=== PATIENT | female | born 1970 | race African-American/Black ===

== ENCOUNTER 2016-09-19 09:26 | Emergency (ER) | payer BC, OTHER ==
[~2016-09-19] VITALS: Ht 175.3 cm; Wt 100.0 kg
[2016-09-19 09:28] VITALS: BP 147/96; PULSE 108; RESP 24; TEMP 98.1; O2SAT 100
[2016-09-19 09:52] VITALS: TEMP 99.2
--- NOTE | 2016-09-19 09:52 | PD ---
HPI Chief Complaint: Cold / Flu Symptoms Time Seen by Provider: 09:52 Travel History International Travel<30 days: No Contact w/Intl Traveler<30days: No Traveled to known affect area: No History of Present Illness HPI 46-year-old female presents to the emergency Department with complaint of cough , nasal congestion, chest tightness, shortness of breath, body aches, headache 4 days. She went to [place] last week and her grandson was sick with similar symptoms. Reports subjective fever and feeling hot and cold chills. Has not taken her temperature and cannot reports MAXIMUM TEMPERATURE. Reports pressure behind both ears. Denies chest pain, abdominal pain, nausea, vomiting. Denies recent trauma, surgery, hospitalization. Denies being on control. Denies leg edema. Denies hemoptysis. Denies history of DVT/PE. Has tried taking TheraFlu with no relief of symptoms. Took Tylenol last night. Allergies to aspirin and codeine. Says she can take ibuprofen. No other modifying factors or associated signs and symptoms. 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 ) Chest Pain: Yes (10/03/15) Musculoskeletal: Yes (costocondrytis ) ?: Not LMP: 08/30/16 Tubal Ligation: Yes (1999) Social History Alcohol Use: No Tobacco Use: No Substance Use: No Allergies-Medications (Allergen,Severity, Reaction): Coded Allergies: Aspirin (Verified Adverse Reaction, Unknown, Bleeding, 09/19/16) Codeine (Verified Adverse Reaction, Unknown, Nausea/Vomiting, 09/19/16) Reported Meds & Prescriptions Reported Meds & Active Scripts Active Deltasone (Prednisone) 20 Mg Tab 40 Mg PO DAILY 4 Days start 09/20/2016 Proair Hfa 8.5 GM Inh (Albuterol Sulfate) 90 Mcg/Act Aer 2 Puff INH Q4-6H PRN 108 mcg/actuation Ibuprofen 800 Mg Tab 800 Mg PO Q6HR PRN Tessalon Perles (Benzonatate) 100 Mg Cap 100 Mg PO TID PRN Nasonex Nasal Robbins (Mometasone Furoate) 50 Mcg/Act Naspr 2 Robbins EACH NARE DAILY PRN Review of Systems Except as stated in HPI: all other systems reviewed are Neg Physical Exam Narrative GENERAL: Well-nourished, well-developed female patient, in no acute distress; low-grade fever 99.2; appears like she doesn't feel well cynical and nontoxic-appearing SKIN: Warm and dry. No rash. HEAD: Atraumatic. Normocephalic. EYES: Pupils equal and round at 3 mm with brisk reaction. No scleral icterus. No injection or drainage. PERRLA. ENT: Mucosa pink and moist. No erythema or exudates. No uvular edema. No uvular , palatal, or tonsillar deviation. Airway patent. EARS: Bilateral pinnae and external canals appear within normal limits. Bilateral tympanic membranes without erythema, dullness or perforation. NECK: Trachea midline. No lymphadenopathy. CARDIOVASCULAR: Regular rate and rhythm. No murmur appreciated. RESPIRATORY: No accessory muscle use. Clear to auscultation and decreased to bilateral bases. Breath sounds equal bilaterally. No retractions or tachypnea. No audible wheezing. GASTROINTESTINAL: Abdomen soft, non-tender, nondistended. Hepatic and splenic margins not palpable. Bowel sounds are active 4 quadrants. MUSCULOSKELETAL: No obvious deformities. No clubbing. No cyanosis. No edema. NEUROLOGICAL: Awake and alert. Oriented 3. No obvious cranial nerve deficits. Motor grossly within normal limits. Normal speech. Moves all extremities. 5/5 strength to all extremities. PSYCHIATRIC: Appropriate mood and affect; insight and judgment normal. Data Data Last Documented VS Vital Signs Date Time Temp Pulse Resp B/P Pulse Ox O2 Delivery O2 Flow Rate FiO2 09/19/16 09:52 99.2 09/19/16 09:28 108 24 147/96 100 Room Air Orders Influenzae A/B Antigen (09/19/16 09:47) Ibuprofen (Motrin) (09/19/16 10:00) Chest, Single Ap (09/19/16 09:52) Prednisone (Deltasone) (09/19/16 10:00) Albuterol Neb (Albuterol Neb) (09/19/16 10:00) MDM Medical Decision Making Medical Screen Exam Complete: Yes Emergency Medical Condition: Yes Medical Record Reviewed: Yes Differential Diagnosis Influenza, bronchitis, pneumonia, less likely PE Narrative Course 46-year-old female with cold/flu symptoms 4 days. Patient has low-grade fever 99.2 in the ER. Looks as if she doesn't feel well. Nontoxic appearing. Reports chest tightness and shortness of breath. I do not suspect PE. Feel her symptoms are related to cold/flu symptoms. No history of asthma. Suspecting bronchitis. The patient denies history of PE or DVT; denies recent surgery or trauma, hemoptysis, exogenous estrogen and leg edema. The patient has no present criteria for pulmonary embolism; using the PERC rule for pulmonary embolism there is no need for further workup for PE. Ibuprofen ordered. Chest x-ray ordered. Influenza ordered. Deltasone and albuterol nebulizer ordered. 1034: Chest x-ray with no acute findings. 1046: Influenza positive. I will treat patient for an influenzal bronchitis also. Patient reports improvement in symptoms after breathing treatment. Lungs are clear and equal throughout with improved breath sounds to bilateral bases. Heart rate recheck 94 bpm. Oxygen saturation 100% on room air. Pro- air inhaler, Tessalon Perles, Nasonex nasal spray, ibuprofen, Deltasone prescribed for home. Tamiflu now prescribed secondary to length of illness. Discussed viral illness and symptomatic management. Patient verbalizes understanding and agreement with treatment plan. Patient is medically cleared and stable for discharge. Discussed reasons to return to the emergency department. Instructed patient to follow up with primary care provider. Patient agrees with treatment plan. The patients vital signs are stable and the patient is stable for outpatient follow-up and treatment. Patient discharged home, stable and in no acute distress. Diagnosis Primary Impression: Influenza B Additional Impression: Influenzal bronchitis Referrals: Primary Care Physician Patient Instructions: Acute Bronchitis (ED), General Instructions, Influenza ( ED), Safe Use of Cough and Cold Medicines (ED) Departure Forms: Tests/Procedures, Work Release Enter return to work date: Sep 22, 2016 Additional Instructions: Use Albuterol inhaler as prescribed Take oral steroids as prescribed and complete full course Use Tessalon Perles as prescribed to decrease coughing spasms [id number] decongestants or antihistamines as directed and as needed for symptom management Your cough can last 4-6 weeks Drink plenty of fluids to prevent dehydration Use hot air humidifier to decrease cough exacerbation Turn off ceiling fans and sleep with head of bed elevated Avoid triggers such as second hand smoke, dust, known allergens Follow-up with your primary care provider Return to the emergency department immediately with worsening of symptoms Med/Other Pt SpecificInfo: Prescription(s) given Scripts Prednisone (Deltasone)20 Mg Tab40 Mg PO DAILY 4 Days Ref 0 start 09/20/2016 Prov:Sharon HardinP 09/19/16 Albuterol 8.5 GM Inh (Proair Hfa 8.5 GM Inh)90 Mcg/Act Aer2 Puff INH Q4-6H PRN ( SOB/WHEEZING) #1 INHALER Ref 0 108 mcg/actuation Prov:Sharon Hardin 09/19/16 Ibuprofen 800 Mg [id number] Mg PO Q6HR PRN (PAIN) #30 TAB Ref 0 Prov:Sharon HardinP 09/19/16 Benzonatate (Tessalon Perles)100 Mg [id number] Mg PO TID PRN (COUGH) #20 CAP Ref 0 Prov:Sharon HardinP 09/19/16 Mometasone Nasal Robbins (Nasonex Nasal Robbins)50 Mcg/Act Naspr2 Robbins EACH NARE DAILY PRN (NASAL CONGESTION) #1 BOTTLE Ref 0 Prov:Sharon HardinP 09/19/16 Disposition: 01 DISCHARGE HOME Condition: Stable Sharon Hardin Sep 19, 2016 09:52
[2016-09-19] MEDS ORDERED: predniSONE 20 MG TAB PO ONE (10:00)
[2016-09-19] MEDS ORDERED: RESP: ALBUTEROL 2.5 MG/3 ML NEB (SCH) INH ONE (10:00)
[2016-09-19] MEDS ORDERED: IBUPROFEN 800 MG TAB PO ONE (10:00)
--- NOTE | 2016-09-19 10:27 | RADRPT ---
EXAM DATE/TIME: 09/19/2016 10:03 [facility] COMPARISON: CHEST SINGLE AP, October 03, 2015, 8:15. INDICATIONS : Cough, congestion and flu symptoms for 4 days MEDICAL HISTORY : None. SURGICAL HISTORY : ENCOUNTER: Initial ACUITY: 4 - 6 days PAIN SCORE: 6/10 LOCATION: Bilateral chest FINDINGS: A single view of the chest demonstrates the lungs to be symmetrically aerated without evidence of mas s, infiltrate or effusion. The cardiomediastinal contours are unremarkable. Osseous structures are intact. CONCLUSION: No acute disease. Austyn Ugarte MD on September 19, 2016 at 10:24 Board Certified Radiologist. This report was verified electronically.
[2016-09-19] MEDS ORDERED: PRED-503 PO (10:36)
[2016-09-19] MEDS ORDERED: ALBUAER3 INH (10:36)
[2016-09-19] MEDS ORDERED: IBUP800T23 PO (10:36)
[2016-09-19] MEDS ORDERED: BENZ100 PO (10:36)
[2016-09-19] MEDS ORDERED: MOME17I EACH NARE (10:36)
[2016-09-19 11:04] VITALS: PULSE 95; O2SAT 100
== END 2016-09-19 11:01 | disposition home or self-care (01) ==
LOC: NEPB 09:26
DX: J10.1 Influenza due to other identified influenza virus with other respiratory manifestations (principal); J20.9 Acute bronchitis, unspecified; R06.02 Shortness of breath
CPT/HCPCS: 71010; 87804; 94664; 99285; J7512; J7613

== ENCOUNTER 2018-05-16 12:24 | Observation (INO) ==
[2018-05-16] MEDS ORDERED: Aspirin 325 MG Tablet PO ONE (12:59)
--- NOTE | 2018-05-16 13:21 | XR ---
EXAM DATE: 05/16/2018 1:08 PM EST AGE/SEX: 48 years / Female INDICATIONS: Chest pain CLINICAL DATA: This is the patient's initial encounter. Patient reports that signs and symptoms have been present for 3 days and indicates a pain score of 7/10. MEDICAL/SURGICAL HISTORY: None. Tubal ligation. COMPARISON: [facility] [place], CHEST 1V SINGLE AP, 04/02/2018. . FINDINGS: A single AP view of the chest demonstrates the lungs to be symmetrically aerated without evidence of mass, infiltrate or effusion. The cardiomediastinal contours are unremarkable. Osseous structures a re intact. CONCLUSION: Negative examination. Electronically signed by: Henrique Hinkle MD 05/16/2018 1:20 PM EST
[2018-05-16 13:59] LABS: Baso % (Auto) 0.7 % (0.0-2.0); Eos # (Auto) 0.1 th/mm3 (0.0-0.4); Eos % (Auto) 1.2 % (0.0-4.0); Hematocrit 29.5 % (35.0-46.0); Hemoglobin 9.2 gm/dL (11.6-15.3); Lymph # (Auto) 2.3 th/mm3 (1.0-4.8); Lymph % (Auto) 37.7 % (9.0-44.0); Mean Corpuscular HGB Conc 31.2 % (32.0-36.0); Mean Corpuscular Hemoglobin 24.5 pg (27.0-34.0); Mean Corpuscular Volume 78.6 fL (80.0-100.0); Mean Platelet Volume 7.9 fL (7.0-11.0); Mono # (Auto) 0.8 th/mm3 (0.0-0.9); Mono % (Auto) 12.6 % (0.0-8.0); Neut # (Auto) 2.9 th/mm3 (1.8-7.7); Neut % (Auto) 47.8 % (16.0-70.0); Platelet Count 307 th/mm3 (150-450); Red Blood Count 3.76 mil/mm3 (4.00-5.30); Red Cell Distribution Width 17.9 % (11.6-17.2)
--- NOTE | 2018-05-16 14:01 | ED ---
HPI General Chief Complaint: Chest Pain Stated Complaint: chest pain Time Seen by Provider: 05/16/18 12:42 Source: patient and family Mode of arrival: ambulatory Limitations: no limitations History of Present Illness HPI narrative: 48-year-old female that presents to the ED for evaluation of chest pain. Patient has had chest pain since today. Per patient he woke her up from her sleep. Per patient states mainly on the chest and feels like something sitting on her chest. She still has some discomfort. She does have a history of high blood pressure but takes no medications for it. She does have a history of GERD as well as chronic pain to her right shoulder from an injury she sustained and had surgery for. She states that she is compliant with his medications. Denies any injury or trauma. No recent travel. Per patient the pressure is 4 out of 10. Has not taken anything for this other than Motrin. Per patient she does have a family history of heart disease. She denies ever having a stress test. She denies smoking. No diabetes. No other medical issues at this time. Pain does not radiate. Related Data Home Medications Medication Instructions Recorded Confirmed meloxicam 15 mg PO DAILY 05/16/18 05/16/18 omeprazole 20 mg PO DAILY 05/16/18 05/16/18 Allergies Allergy/AdvReac Type Severity Reaction Status Date / Time codeine AdvReac Intermediate Nausea/Vomi Verified 05/16/18 13:09 ting Review of Systems ROS: all other systems reviewed are negative [facility] Medical History Medical History Patient denies medical problems (Acute) Surgical History Surgical History Hx of tubal ligation (Acute) Social History Social History Substance History: No History of Abuse Second Hand Smoke Exposure: No Smoking Status: Never smoker How Often Do You Have a Drink Containing Alcohol: Never Recent Travel in [facility] within the Last 8 Weeks: No Recent Out of Country Travel within the Last 8 Weeks: No Immunization History Tetanus Immunization: <5 Years Exam Narrative Exam Narrative: GENERAL: Well appearing SKIN: Focused skin assessment warm/dry. HEAD: Atraumatic. Normocephalic. EYES: Pupils equal and round. No scleral icterus. No injection or drainage. ENT: No nasal bleeding or discharge. Mucous membranes pink and moist. Tongue is midline. No uvula deviation. NECK: Trachea midline. No JVD. CARDIOVASCULAR: Regular rate and rhythm. No murmur appreciated. RESPIRATORY: No accessory muscle use. Clear to auscultation. Breath sounds equal bilaterally. GASTROINTESTINAL: Abdomen soft, non-tender, nondistended. Hepatic and splenic margins not palpable. MUSCULOSKELETAL: No obvious deformities. No clubbing. No cyanosis. No edema. Full range of motion of the upper and lower extremities bilaterally. 2+ pulses bilaterally. NEUROLOGICAL: Awake and alert. No obvious cranial nerve deficits. Motor grossly within normal limits. Normal speech. PSYCHIATRIC: Appropriate mood and affect; insight and judgment normal. Course Initial Documented Vital Signs Temperature 98.8 F 05/16/18 12:32 Pulse Rate 86 05/16/18 12:32 Respiratory Rate 18 05/16/18 12:32 Blood Pressure 163/91 H 05/16/18 12:32 Pulse Oximetry 100 05/16/18 12:32 Last Documented Vital Signs Temperature 97.9 F 05/16/18 14:54 Pulse Rate 87 05/16/18 14:54 Respiratory Rate 18 05/16/18 14:54 Blood Pressure 134/79 05/16/18 14:54 Pulse Oximetry 100 05/16/18 14:54 Medical Decision Making ARTHUR Attestation ARTHUR supervised visit: Yes Attestation: I, Dr. Bell, have reviewed the advance practice practitioner's documentation and am in agreement, met with the patient face to face, made the diagnosis, and the medical decision making was done by me. *My assessment and Findings: Patient is a 48-year-old female presents with complaint of chest pain that has been intermittent. EKG is without acute ischemic changes. Chest x-ray and labs are unremarkable. When she does have the chest pain that has been relieved with nitro if not with rest alone. She has been admitted to the chest pain center for serial troponins and EKGs. MDM Narrative Medical decision making narrative: 48-year-old female that presents to the ED for evaluation of chest pain. Patient was properly examined and was found to have signs and symptoms consistent with chest pain. Patient was given aspirin nitroglycerin here. Labs and imaging showed no sign of acute disease. At this time recommendations admission to the chest pain center. My attending about the patient agrees with this. Patient agrees with this. Medical Screen Exam Complete: Yes Emergency Medical Condition: Yes Differential Diagnosis Differential Diagnosis: Chest pain versus atypical chest pain versus ACS Medical Records Medical records reviewed: Yes I reviewed the patient's medical records. Lab Data Lab results reviewed: Yes I reviewed the patient's lab results. Result diagrams: 05/16/18 13:40 05/16/18 13:40 Lab Results 05/16/18 05/16/18 05/16/18 Range/Units 13:40 13:40 13:40 WBC 6.0 (4.0-11.0) th/mm3 RBC 3.76 L (4.00-5.30) mil/mm3 Hgb 9.2 L (11.6-15.3) gm/dL Hct 29.5 L (35.0-46.0) % MCV 78.6 L (80.0-100.0) fL MCH 24.5 L (27.0-34.0) pg MCHC 31.2 L (32.0-36.0) % RDW 17.9 H (11.6-17.2) % Plt Count 307 (150-450) th/mm3 MPV 7.9 (7.0-11.0) fL Neut % (Auto) 47.8 (16.0-70.0) % Lymph % (Auto) 37.7 (9.0-44.0) % [place] % (Auto) 12.6 H (0.0-8.0) % Eos % (Auto) 1.2 (0.0-4.0) % Baso % (Auto) 0.7 (0.0-2.0) % Neut # (Auto) 2.9 (1.8-7.7) th/mm3 Lymph # (Auto) 2.3 (1.0-4.8) th/mm3 [place] # (Auto) 0.8 (0.0-0.9) th/mm3 Eos # (Auto) 0.1 (0.0-0.4) th/mm3 Baso # (Auto) 0.0 (0.0-0.2) th/mm3 WBC Differential . Differential Comment Auto diff final PT 10.2 (9.8-11.6) sec INR 1.0 Ratio APTT 30.1 (23.4-31.7) sec Sodium 141 (136-145) meq/L Potassium 3.6 (3.5-5.1) meq/L Chloride 106 (98-107) meq/L Carbon Dioxide 27.1 (21.0-32.0) meq/L Anion Gap 8 (5-15) meq/L BUN 11 (7-18) mg/dL Creatinine 1.02 H (0.50-1.00) mg/dL Estimated GFR 70 L (>89) mL/min Random Glucose 82 (74-106) mg/dL Calcium 8.4 L (8.5-10.1) mg/dL Total Bilirubin 0.3 (0.2-1.0) mg/dL AST 15 (15-37) U/L ALT 16 (10-53) U/L Alkaline Phosphatase 71 (45-117) U/L Total Creatine Kinase 122 (26-192) U/L CK-MB (CK-2) Less than 1.0 (0.5-3.6) ng/mL Troponin I Less than 0.02 L (0.02-0.05) ng/mL Total Protein 7.4 (6.4-8.2) g/dL Albumin 3.3 L (3.4-5.0) g/dL Lipase 100 (73-393) U/L Imaging Data Attestation: I personally reviewed and interpreted this imaging study as follows : Radiologist's impression: Chest X-Ray 05/16/18 12:59 CONCLUSION: Negative examination. ECG Data Attestation: I personally reviewed and interpreted this ECG as follows: Interpretation: EKG shows sinus rhythm with no sign of acute ischemia and arrhythmia read by me and attending. Ventricular rate of 80 bpm, [place] interval of [address] elevations read by me and attending Dr. Bell. Discharge Plan Discharge Disposition Patient Disposition: 30 Still Patient Discharge Details Diagnosis: Chest pain, rule out acute myocardial infarction Physicians Team ED Provider: Skylar Bell ED Midlevel Provider: Yuan Abraham Primary Care Provider: Primary Care Tiffany Patino Rxs /Orders / Referrals /Forms Prescriptions: No Action meloxicam 15 mg Tablet 15 mg PO DAILY RF: 0 omeprazole 20 mg Capsule,Delayed Release(Dr/Ec) 20 mg PO DAILY RF: 0 Discharge Instructions Patient Printed Instructions: Chest Pain (ED) Status ED Status: Admitted Observation Patient
[2018-05-16 14:08] LABS: Activated Partial Thrombo Time 30.1 sec (23.4-31.7); Prothrombin Time 10.2 sec (9.8-11.6)
[2018-05-16 14:16] LABS: Alanine Aminotransferase 16 U/L (10-53); Albumin 3.3 g/dL (3.4-5.0); Anion Gap 8 meq/L (5-15); Aspartate Aminotransferase 15 U/L (15-37); Blood Urea Nitrogen 11 mg/dL (7-18); Calcium 8.4 mg/dL (8.5-10.1); Carbon Dioxide 27.1 meq/L (21.0-32.0); Chloride 106 meq/L (98-107); Glomerular Filtration Rate 70 mL/min (>89); Glucose,Random 82 mg/dL (74-106); Lipase 100 U/L (73-393); Potassium 3.6 meq/L (3.5-5.1); Sodium 141 meq/L (136-145)
[2018-05-16 14:20] LABS: Alkaline Phosphatase 71 U/L (45-117); Creatine Kinase 122 U/L (26-192); Total Protein 7.4 g/dL (6.4-8.2)
[2018-05-16] MEDS ORDERED: Acetaminophen 500 MG Tablet PO PRN (15:27)
--- NOTE | 2018-05-16 15:36 | P.HPCA ---
History of Present Illness Primary Care Physician: No Primary Care Physician Chief Complaint: Chest pain History of Present Illness: This is a 48-year-old female that presents to ED stating she has history of costochondritis and believes it is back. States that she developed a heaviness in the left side of her chest while she was lifting her arm in the shower yesterday morning. The pain is been constant ever since. Is worse with any type of movements. The area seems to be tender as well. States she was prescribed meloxicam for chronic right shoulder pain recently and tried one this morning which did not help her symptoms. Denies associated shortness of breath, nausea, or diaphoresis. Upon reviewing records she had a Ilya protocol ETT 2016 in the chest pain center and it was nonischemic after walking 8 minutes and 16 seconds. Denies recent illness. Denies fevers or chills. Denies . Denies history of hypertension but states that her blood pressure has been elevated at her ENT office visit for chronic sinusitis as well as her orthopedist office recently for her chronic right shoulder pain. Has not been prescribed medication for hypertension. Denies hyperlipidemia diabetes and CAD. States that her mother has "angina." Does not know anything further. States that her brother had an AR in his early 50s. Lifetime non-smoker. Denies alcohol or illicit drug use. She works as a correctional officer [employer] - Diagnosis (1) Atypical chest pain (2) Anemia Review of Systems General: Patient denies fevers, chills, and recent travel. HEENT: Patient denies headache, sore throat, difficulty swallowing. Cardiovascular: Has the chest discomfort as mentioned above. Denies sensation of heart beating rapidly or irregularly. No syncope. Denies diaphoresis. Respiratory: Denies shortness of breath or inspirational chest discomfort. Denies coughing wheezing or hemoptysis. GI: Patient denies nausea, vomiting, diarrhea, abdominal pain, bloody stools. Musculoskeletal: Complains of chronic right shoulder pain. Patient denies joint edema. Denies calf pain or edema. Neurovascular: Patient denies numbness, tingling, weakness in extremities. Denies headache. Endocrine: Denies polyuria and polydipsia. Hematologic: Denies easy bruising. Skin: Denies rash or itching. PMFSH - History History Provided By: Patient - Medical History Medical History: Medical History (Last Reviewed 05/16/18 @ 14:00 by SANJEEV Mckinnon) Patient denies medical problems - Surgical History Surgical History: Surgical History (Last Reviewed 05/16/18 @ 14:00 by SANJEEV Mckinnon) Hx of tubal ligation - Tobacco History Second Hand Smoke Exposure: No Smoking Status: Never smoker - Alcohol History How Often Do You Have a Drink Containing Alcohol: Never - Substance Use History Substance History: No History of Abuse - Travel History Recent Travel in the [place] Within the Last 8 Weeks: No Recent Travel Out of the Country Within the Last 8 Weeks: No - Immunization History Tetanus Immunization: <5 Years Medications and Allergies Active Medications: Active Medications Acetaminophen (Tylenol) 500 mg PO Q6H PRN PRN Reason: pain scale 1-5 Albuterol (Duoneb Neb (Prn)) 1 ampul NEB Q4HR NEB PRN PRN Reason: SHORTNESS OF BREATH/WHEEZING Aspirin (Aspirin) 325 mg PO DAILY MATT Clonidine HCl (Catapres) 0.1 mg PO Q6H PRN PRN Reason: SBP >165 OR DBP > 110 Pantoprazole Sodium (Protonix) 40 mg PO DAILY MATT Sodium Chloride (Ns Flush) 2 ml IV.FLUSH UNSCH PRN PRN Reason: FLUSH AFTER USING IV ACCESS Last Admin: 05/16/18 13:15 Dose: 2 ml Sodium Chloride (Ns Flush) 2 ml IV.FLUSH BID MATT Sodium Chloride (Ns Flush) 2 ml IV.FLUSH PRN PRN PRN Reason: FLUSH AFTER USING IV ACCESS Allergies Allergy/AdvReac Type Severity Reaction Status Date / Time codeine AdvReac Intermediate Nausea/Vomi Verified 05/16/18 13:09 ting Home Medications Medication Instructions Recorded Confirmed Type meloxicam 15 mg PO DAILY 05/16/18 05/16/18 History omeprazole 20 mg PO DAILY 05/16/18 05/16/18 History Exam Vital signs: Vital Signs 05/16/18 12:32 05/16/18 12:59 05/16/18 13:20 Temperature 98.8 F 97.9 F Pulse Rate 86 74 Respiratory Rate 18 21 17 Blood Pressure 163/91 H 156/74 H Pulse Oximetry 100 99 05/16/18 13:48 05/16/18 14:54 Temperature 97.9 F Pulse Rate 87 Respiratory Rate 17 18 Blood Pressure 134/79 Pulse Oximetry 100 Intake & Output 05/15/18 05/16/18 05/16/18 18:59 06:59 18:59 Weight 118.841 kg Narrative: GENERAL: This is a well-nourished, well-developed patient, in no apparent distress. Patient speaks in clear complete sentences. Patient is pleasant. HEENT: Head is atraumatic and normocephalic. Neck is supple without lymphadenopathy and trachea is midline. No JVD or carotid bruits. CARDIOVASCULAR: Regular rate and rhythm without murmurs, gallops, or rubs. RESPIRATORY: Clear to auscultation. Breath sounds equal bilaterally. No wheezes , rales, or rhonchi. Left chest wall is tender reproducing the discomfort that she has been having. No use of accessory muscles. GASTROINTESTINAL: Abdomen is nontender, nondistended. Abdomen soft. No obvious pulsatile mass or bruit. No CVA tenderness. Strong femoral pulses bilaterally. Normal bowel sounds in all quadrants. MUSCULOSKELETAL: Patient is moving upper and lower extremities freely. No calf tenderness or edema, no Homans sign. Strong pulses in upper and lower extremities. NEUROLOGICAL: Patient is alert and oriented. Cranial nerves 2-12 are grossly intact. No focal deficits and speech is clear. SKIN: No rash and turgor is normal. Results 05/16/18 13:40 05/16/18 13:40 Cardiac Enzymes 05/16/18 Range/Units 13:40 AST 15 (15-37) U/L CK-MB (CK-2) Less than 1.0 (0.5-3.6) ng/mL Troponin I Less than 0.02 L (0.02-0.05) ng/mL Coagulation 05/16/18 Range/Units 13:40 PT 10.2 (9.8-11.6) sec APTT 30.1 (23.4-31.7) sec CBC 05/16/18 Range/Units 13:40 WBC 6.0 (4.0-11.0) th/mm3 RBC 3.76 L (4.00-5.30) mil/mm3 Hgb 9.2 L (11.6-15.3) gm/dL Hct 29.5 L (35.0-46.0) % Plt Count 307 (150-450) th/mm3 Neut # (Auto) 2.9 (1.8-7.7) th/mm3 Lymph # (Auto) 2.3 (1.0-4.8) th/mm3 [place] # (Auto) 0.8 (0.0-0.9) th/mm3 Eos # (Auto) 0.1 (0.0-0.4) th/mm3 Baso # (Auto) 0.0 (0.0-0.2) th/mm3 Comprehensive Metabolic Panel 05/16/18 Range/Units 13:40 Sodium 141 (136-145) meq/L Potassium 3.6 (3.5-5.1) meq/L Chloride 106 (98-107) meq/L Carbon Dioxide 27.1 (21.0-32.0) meq/L BUN 11 (7-18) mg/dL Creatinine 1.02 H (0.50-1.00) mg/dL Calcium 8.4 L (8.5-10.1) mg/dL AST 15 (15-37) U/L ALT 16 (10-53) U/L Alkaline Phosphatase 71 (45-117) U/L Total Protein 7.4 (6.4-8.2) g/dL Albumin 3.3 L (3.4-5.0) g/dL Intake and Output 05/16/18 05/16/18 05/16/18 06:59 14:59 22:59 Other: Weight 118.841 kg Patient Weight 05/17/18 06:59 Weight 118.841 kg - Imaging and Cardiology Imaging: Impressions Chest X-Ray 05/16/18 12:59 CONCLUSION: Negative examination. EKG interpretations - EKG EKG shows: sinus rhythm (Initial EKG is sinus rhythm without significant ST segment depressions or elevations.) Caprini VTE Risk Assessment Caprini VTE Risk Assessment: No/Low Risk (score <= 1) Caprini Risk Assessment Model: Point Value = 1 Point Value = 2 Point Value = 3 Point Value = 5 Age 41-60 Minor surgery BMI > 25 kg/m2 Swollen legs Varicose veins or History of unexplained or recurrent spontaneous Oral contraceptives or hormone replacement Sepsis (< 1 month) Serious lung disease, including pneumonia (< 1 month) Abnormal pulmonary function Acute myocardial infarction Congestive heart failure (< 1 month) History of inflammatory bowel disease Medical patient at bed rest Age 61-74 Arthroscopic surgery Major open surgery (> 45 min) Laparoscopic surgery (> 45 min) Malignancy Confined to bed (> 72 hours) Immobilizing plaster cast Central venous access Age >= 75 History of VTE Family history of VTE Factor V Leiden Prothrombin [id number] Lupus anticoagulant Anticardiolipin antibodies Elevated serum homocysteine Heparin-induced thrombocytopenia Other congenital or acquired thrombophilia Stroke (< 1 month) Elective arthroplasty Hip, pelvis, or leg fracture Acute spinal cord injury (< 1 month) Prophylaxis Regimen: Total Risk Factor Score Risk Level Prophylaxis Regimen 0-1 Low Early ambulation 2 Moderate Order ONE of the following: *Sequential Compression Device (SCD) *Heparin 5000 units SQ BID 3-4 Higher Order ONE of the following medications: *Heparin 5000 units SQ TID *Enoxaparin/Lovenox 40 mg SQ daily (WT < 150 kg, CrCl > 30 mL/min) *Enoxaparin/Lovenox 30 mg SQ daily (WT < 150 kg, CrCl > 10-29 mL/min) *Enoxaparin/Lovenox 30 mg SQ BID (WT < 150 kg, CrCl > 30 mL/min) AND/OR *Sequential Compression Device (SCD) 5 or more Highest Order ONE of the following medications: *Heparin 5000 units SQ TID (Preferred with Epidurals) *Enoxaparin/Lovenox 40 mg SQ daily (WT < 150 kg, CrCl > 30 mL/min) *Enoxaparin/Lovenox 30 mg SQ daily (WT < 150 kg, CrCl > 10-29 mL/min) *Enoxaparin/Lovenox 30 mg SQ BID (WT < 150 kg, CrCl > 30 mL/min) AND *Sequential Compression Device (SCD) Assessment and Plan - Assessment (1) Atypical chest pain Code(s): R07.89 - Other chest pain Status: Acute (2) Anemia Code(s): D64.9 - Anemia, unspecified Status: Acute - Plan * Chest pain: Patient will continue to have serial cardiac enzymes and EKGs for ruling out purposes. Beta-hCG is pending. Patient will likely be given an injection of Toradol 30 mg IV as it has seemed to have worked in the past. She will be seen by Dr. Dino Kelly of cardiology in the chest pain center in the morning. She will likely have a Ilya protocol ETT if ruled out. Patient should follow-up with PCP. Return to ED for interval issues. * Anemia: Hemoglobin was 9.2 hematocrit 29.5. Upon reviewing records hemoglobin was 9.4 04/02/18. We will repeat a CBC in the morning. She will need further outpatient follow-up with PCP. Return to ED for interval issues.
[2018-05-16 17:31] LABS: Creatine Kinase 103 U/L (26-192)
[2018-05-16 21:22] LABS: Creatine Kinase 153 U/L (26-192)
[2018-05-17 04:42] LABS: Baso # (Auto) 0.1 th/mm3 (0.0-0.2); Eos # (Auto) 0.1 th/mm3 (0.0-0.4); Eos % (Auto) 1.4 % (0.0-4.0); Hematocrit 29.7 % (35.0-46.0); Hemoglobin 9.2 gm/dL (11.6-15.3); Lymph % (Auto) 37.6 % (9.0-44.0); Mean Corpuscular Hemoglobin 23.9 pg (27.0-34.0); Mean Corpuscular Volume 77.2 fL (80.0-100.0); Mean Platelet Volume 7.7 fL (7.0-11.0); Mono # (Auto) 0.7 th/mm3 (0.0-0.9); Mono % (Auto) 12.6 % (0.0-8.0); Neut # (Auto) 2.5 th/mm3 (1.8-7.7); Neut % (Auto) 47.4 % (16.0-70.0); Platelet Count 281 th/mm3 (150-450); Red Blood Count 3.85 mil/mm3 (4.00-5.30); Red Cell Distribution Width 17.5 % (11.6-17.2); White Blood Count 5.3 th/mm3 (4.0-11.0)
[2018-05-17] MEDS ORDERED: Aspirin 325 MG Tablet PO SCH (09:00)
--- NOTE | 2018-05-18 07:19 | TR ---
Date Performed: 05/17/2018 Time Performed: 09:27:09 DOCTOR: Milagro Hill DRUG LIST: CLINICAL HISTORY: REASON FOR TEST: REASON FOR ENDING: OBSERVATION: CONCLUSION: Ilya protocol completed. Stopped sec to leg fatigue and reaching target heart rate. Maximum OA=741 Max HR Achieved=85.0% Maximum BI=443/78 Total Exercise Time=6:01. No reprod chest dis comfort. Infrequent PVC. No st t segment changes. Normal bp response. Fair exercise tolerance. Recove ry quick and unremarkable. No ischemia COMMENTS: no ischemia
--- NOTE | 2018-05-18 07:23 | ECG ---
Date Performed: 05/16/2018 Time Performed: 20:37:24 PTAGE: 48 years EKG: Sinus rhythm MINIMAL VOLTAGE CRITERIA FOR LVH, CONSIDER NORMAL VARIANT BORDERLINE ECG Since previous tracing, no significant change noted NO PREVIOUS TRACING DOCTOR: Milagro Hill Interpretating Date/Time 05/18/2018 07:21:21
--- NOTE | 2018-05-18 07:23 | ECG ---
Date Performed: 05/16/2018 Time Performed: 17:06:02 PTAGE: 48 years EKG: Sinus rhythm MODERATE VOLTAGE CRITERIA FOR LVH, CONSIDER NORMAL VARIANT BORDERLINE ECG Since PREVIOUS TRACING , no significant change noted PREVIOUS TRACIN05/16/2018 12.50 DOCTOR: Milagro Hill Interpretating Date/Time 05/18/2018 07:22:10
--- NOTE | 2018-05-18 07:25 | ECG ---
Date Performed: 05/16/2018 Time Performed: 12:50:58 PTAGE: 48 years EKG: Sinus rhythm MINIMAL VOLTAGE CRITERIA FOR LVH, CONSIDER NORMAL VARIANT Abnromal R progression- lead misplacement PREVIOUS TRACING : 04/02/2018 07.03 DOCTOR: Milagro Hill Interpretating Date/Time 05/18/2018 07:24:27
== END 2018-05-17 11:15 | disposition home or self-care (01) ==
LOC: NEPE 12:24 → NEDA 12:24 → NEPFCDU 16:00